=== PATIENT | female | born 1985 | race Caucasian/White ===

== ENCOUNTER 2016-07-30 16:45 | Observation (INO) | payer MEDICAID, OTHER ==
[~2016-07-30] VITALS: Ht 144.8 cm; Wt 54.0 kg
[~2016-07-30 16:45] MED LIST: FERR-43 PO
[2016-07-30] MEDS ORDERED: ONDANSETRON HCL 4MG/2ML VIAL IV NR (17:45)
[2016-07-30 18:07] LABS: CLARITY URINE CLEAR (CLEAR); COLOR URINE DARK YELLOW (YELLOW); GLUCOSE URINE NEGATIVE (NEGATIVE); KETONES URINE 1+ (NEGATIVE); LEUKOCYTE ESTERASE URINE 1+ (NEGATIVE); NITRITE URINE NEGATIVE (NEGATIVE); OCCULT BLOOD URINE NEGATIVE (NEGATIVE); PH URINE 6.5 (4.5-8.0); PROTEIN URINE NEGATIVE (NEGATIVE); SPECIFIC GRAVITY URINE 1.026 (1.005-1.030)
[2016-07-30 18:21] LABS: ALANINE AMINOTRANSFERASE 23 IU/L (13-61); ALBUMIN 2.6 g/dL (3.4-5.0); ANION GAP 13; CALCIUM 8.6 mg/dL (8.5-10.1); CARBON DIOXIDE 25 mEq/L (21-32); CHLORIDE 105 mEq/L (98-107); INDEX HEMOLYSI 1 (1-3); INDEX ICTERIC 1 (1-4); INDEX LIPEMIC 1 (1-3); UREA NITROGEN BLOOD 9 mg/dL (7-21); eGFR > 60 mL/min (>60)
[2016-07-30 18:22] LABS: BASOPHILS % 0.4 % (0.0-2.0); EOSINOPHILS % 0.6 % (0.0-5.0); HEMATOCRIT. 29.2 % (36.0-48.0); LYMPHOCYTES % 19.1 % (20.0-50.0); MEAN CORPUSCULAR HEMOGLOBIN 28.2 pg (28.0-32.0); MEAN CORPUSCULAR HGB CONC 34.2 g/dL (31.0-37.0); MEAN CORPUSCULAR VOLUME 82.4 fL (81.0-99.0); MEAN PLATELET VOLUME 8.3 fl (7.4-10.4); MONOCYTES % 8.5 % (2.0-8.0); NEUTROPHILS % 71.4 % (40.0-76.0); PLATELET 322 x1000/uL (130-400); RED BLOOD CELL COUNT 3.55 mill/uL (4.2-5.4); WHITE BLOOD COUNT 7.1 x1000/uL (4.5-11.0)
[2016-07-30 18:36] LABS: BACTERIA URINE TRACE; RBC URINE 0-2 /hpf (0-2); SQUAMOUS EPITHELIAL CELL URINE 1+ /lpf (RARE/1+)
[2016-07-30] MEDS ORDERED: CLINDAMYCIN 600 MG in DEXTROSE 5% WATER 50 ML IV SCH (19:15)
[2016-07-30] MEDS ORDERED: ACETAMINOPHEN 325MG TABLET PO NR (19:15)
[2016-07-30] MEDS: LACTATED RINGERS 1,000 ML IV SCH ×2 (19:30→21:02)
[2016-07-31] MEDS: LACTATED RINGERS 1,000 ML IV SCH (04:27)
== END 2016-07-31 08:20 | disposition home or self-care (01) ==
LOC: L&D 16:45
PROVIDERS: ADMIT Obstetrics & Gynecology; ATTEND Obstetrics & Gynecology
DX: O21.2 Late vomiting of pregnancy (principal); O62.9 Abnormality of forces of labor, unspecified; O26.893 Other specified pregnancy related conditions, third trimester; R10.30 Lower abdominal pain, unspecified; Z3A.34 34 weeks gestation of pregnancy
CPT/HCPCS: 36415; 76815; 76818; 80053; 81001; 85025; 96361; 96365; 96366; 99281; G0378; J3490; J7120; 96360; J7060

== ENCOUNTER 2016-09-04 23:20 | Observation (INO) | payer MEDICAID, OTHER | END 2016-09-05 01:30 | disposition home or self-care (01) | LOC: L&D 23:20 | PROVIDERS: ADMIT Obstetrics & Gynecology; ATTEND Obstetrics & Gynecology | DX: O62.9 Abnormality of forces of labor, unspecified (principal); O26.893 Other specified pregnancy related conditions, third trimester; R10.9 Unspecified abdominal pain; Z3A.39 39 weeks gestation of pregnancy | CPT/HCPCS: 99281; G0378 ==

== ENCOUNTER 2018-10-17 07:31 | Observation (INO) | payer MEDICAID ==
[~2018-10-17] VITALS: Ht 144.8 cm; Wt 56.2 kg
[2018-10-17 09:00] LABS: CLARITY URINE CLEAR (CLEAR); COLOR URINE DARK YELLOW (YELLOW); KETONES URINE 4+ (NEGATIVE); LEUKOCYTE ESTERASE URINE 1+ (NEGATIVE); NITRITE URINE NEGATIVE (NEGATIVE); OCCULT BLOOD URINE 2+ (NEGATIVE); PROTEIN URINE 1+ (NEGATIVE); SPECIFIC GRAVITY URINE 1.044 (1.005-1.030)
[2018-10-17] MEDS ORDERED: ACET325C5 PO (09:12)
[2018-10-17] MEDS ORDERED: PRENATAL VITAMIN (09:12)
[2018-10-17] MEDS ORDERED: FERROUS SULFATE (09:12)
[2018-10-17] MEDS ORDERED: LACTATED RINGERS 1,000 ML IV SCH (09:30)
[2018-10-17] MEDS ORDERED: NITROFURANTOIN 100MG M/M CAPSULE PO SCH (09:30)
[2018-10-17] MEDS ORDERED: LIDOCAINE HCL/PF 1% 10 MG/ML 5ML VIAL ONE (10:07)
[2018-10-17] MEDS ORDERED: NITR-87 PO ×2 (11:10→11:11)
== END 2018-10-17 11:15 | disposition home or self-care (01) ==
LOC: 8 EST LDRP 07:31
PROVIDERS: ADMIT Specialist; ATTEND Specialist
DX: O26.853 Spotting complicating pregnancy, third trimester (principal); O26.893 Other specified pregnancy related conditions, third trimester; R10.2 Pelvic and perineal pain; Z3A.34 34 weeks gestation of pregnancy
CPT/HCPCS: 81003; 87086; 99281; G0378; J3490; 96360; 96361; J7120

== ENCOUNTER 2018-11-20 17:22 | Observation (INO) | payer MEDICAID ==
[~2018-11-20 17:22] MED LIST changes: +ACET325C5 PO; -FERR-43 PO; +FERROUS SULFATE; +NITR-87 PO; +PRENATAL VITAMIN
[2018-11-20] MEDS ORDERED: PNV1TABL50 MT (18:48)
== END 2018-11-20 19:00 | disposition home or self-care (01) ==
LOC: 8 EST LDRP 17:22
PROVIDERS: ADMIT Obstetrics & Gynecology; ATTEND Obstetrics & Gynecology
DX: O62.9 Abnormality of forces of labor, unspecified (principal); Z3A.39 39 weeks gestation of pregnancy
CPT/HCPCS: 99281; G0378

== ENCOUNTER 2018-11-29 13:01 | Observation (INO) | payer MEDICAID ==
[~2018-11-29 13:01] MED LIST changes: -ACET325C5 PO; -NITR-87 PO; +PNV1TABL50 MT
== END 2018-11-29 15:35 | disposition home or self-care (01) ==
LOC: 8 EST LDRP 13:01
PROVIDERS: ADMIT Obstetrics & Gynecology; ATTEND Obstetrics & Gynecology
DX: O36.8130 Decreased fetal movements, third trimester, not applicable or unspecified (principal); Z3A.40 40 weeks gestation of pregnancy
CPT/HCPCS: 76815; 76818; 99281; G0378

== ENCOUNTER 2018-12-02 14:34 | Observation (INO) | payer MEDICAID | END 2018-12-02 16:45 | disposition home or self-care (01) | LOC: 8 EST LDRP 14:34 | PROVIDERS: ADMIT Specialist; ATTEND Specialist | DX: O36.8130 Decreased fetal movements, third trimester, not applicable or unspecified (principal); Z3A.40 40 weeks gestation of pregnancy | CPT/HCPCS: 76815; 76818; 99281; G0378 ==

== ENCOUNTER 2019-09-25 14:22 | Emergency (ER) | payer MEDICAID ==
[~2019-09-25] VITALS: Ht 144.8 cm; Wt 56.0 kg
[2019-09-25 14:34] VITALS: BP 133/77
[2019-09-25 16:15] LABS: CLARITY URINE TURBID (CLEAR); COLOR URINE DARK YELLOW (YELLOW); KETONES URINE TRACE (NEGATIVE); LEUKOCYTE ESTERASE URINE 3+ (NEGATIVE); NITRITE URINE NEGATIVE (NEGATIVE); OCCULT BLOOD URINE 3+ (NEGATIVE); PH URINE 5.5 (4.5-8.0); PROTEIN URINE 2+ (NEGATIVE); SPECIFIC GRAVITY URINE 1.031 (1.005-1.030)
[2019-09-25] MEDS ORDERED: DOXYCYCLINE HYCLATE 100MG CAPSULE PO ONE (17:00)
[2019-09-25] MEDS ORDERED: HYDROCODONE/ACETAMINOPHEN 5/325MG TABLET PO ONE (17:00)
== END 2019-09-25 17:23 | disposition home or self-care (01) ==
LOC: ER 14:22
DX: N76.4 Abscess of vulva (principal); N30.00 Acute cystitis without hematuria; Z98.890 Other specified postprocedural states; Z88.0 Allergy status to penicillin
CPT/HCPCS: 81003; 81025; 87077; 87186; 99283